=== PATIENT | female | born 1975 | race African-American/Black ===

== ENCOUNTER 2021-07-03 09:40 | Emergency (ER) | payer OTHER, SELFPAY ==
[2021-07-03 09:42] VITALS: BP 145/80; PULSE 81; RESP 17; TEMP 36.8; O2SAT 98
--- NOTE | 2021-07-03 10:06 | PC.NURSE ---
no answer in the waiting room
[2021-07-03 12:01] VITALS: BP 140/87; PULSE 82; RESP 16; TEMP 37.2; O2SAT 100
--- NOTE | 2021-07-03 13:30 | ED.GENADULT ---
HPI - General Adult General Chief complaint: Nausea/Vomiting/Diarrhea Stated complaint: n/v bodyaches Time Seen by Provider: 07/03/21 13:17 Source: patient History of Present Illness HPI narrative: Patient is 45 y/o female complaining of nausea, vomiting and diarrhea since 3 days ago. She states that she is vomiting up food and yellow liquid. She vomited 3 times during last 24 hours. She has headache and body ache. She denies any abdominal pain. She states that people at work has similar symptoms. She has not been vaccinated COVID. Related Data Allergies Allergy/AdvReac Type Severity Reaction Status Date / Time No Known Allergies Allergy Mild Unverified 05/28/08 18:54 Review of Systems Constitutional: Constitutional: Denies chills, Reports fever(s), Reports headache(s) and Denies weakness Eyes: Eyes: Denies blurry vision ENT: Reports headache(s) and Denies neck pain Cardiovascular: Cardiovascular: Denies chest pain and Denies dyspnea Respiratory: Respiratory: Denies cough and Denies dyspnea Gastrointestinal: Gastrointestinal: Denies abdominal pain, Reports diarrhea, Reports nausea and Reports vomiting Genitourinary: Genitourinary: Denies hematuria and Denies dysuria Musculoskeletal: Musculoskeletal: Denies back pain, Reports myalgias and Denies neck pain Neurologic: Reports headache(s) and Denies weakness Exam Const: General: no acute distress and well developed Orientation/consciousness: oriented to person, oriented to place, oriented to time and patient oriented x3 HENMT: Head: normocephalic Ears: external ears normal General nose exam: Normal external nose present Eyes: General: appearance normal, both eyes and all related structures Conjunctivae: conjunctivae normal Neck: Neck: normal visual inspection and full ROM Chest: Chest palpation & inspection: normal inspection of the chest and no tenderness Resp: Effort & Inspection: normal respiratory effort Auscultation: clear to auscultation bilaterally Cardio: Rate: regular rate Rhythm: regular rhythm GI: GI Palp: No abdominal tenderness and Yes Soft to palpation Skin: General skin exam: normal color and turgor normal Neuro: General: oriented to person, oriented to place, oriented to time and patient oriented x3 Cognition (Neuro): normal cognition Extrem: General: normal to inspection, full ROM and no pedal edema Psych: Appearance: grossly normal Mental Status: mental status grossly normal Affect: normal affect Course Vital Signs Vital signs: Vital Signs Temperature 36.8 C 07/03/21 09:42 Pulse Rate 81 07/03/21 09:42 Respiratory Rate 17 07/03/21 09:42 Blood Pressure 145/80 H 07/03/21 09:42 Pulse Oximetry 98 07/03/21 09:42 Temperature 37.2 C 07/03/21 12:01 Pulse Rate 82 07/03/21 12:01 Respiratory Rate 16 07/03/21 12:01 Blood Pressure 140/87 07/03/21 12:01 Pulse Oximetry 100 07/03/21 12:01 Medical Decision Making Vital Signs Vital Signs: Vital Signs Temperature 36.8 C 07/03/21 09:42 Pulse Rate 81 07/03/21 09:42 Respiratory Rate 17 07/03/21 09:42 Blood Pressure 145/80 H 07/03/21 09:42 Pulse Oximetry 98 07/03/21 09:42 Temperature 37.2 C 07/03/21 12:01 Pulse Rate 82 07/03/21 12:01 Respiratory Rate 16 07/03/21 12:01 Blood Pressure 140/87 07/03/21 12:01 Pulse Oximetry 100 07/03/21 12:01 Lab Data Result diagrams: 07/03/21 13:27 07/03/21 13:27 Labs: Lab Results 07/03/21 07/03/21 07/03/21 Range/Units 13:27 13:27 14:00 WBC 3.7 L (4.5-10.0) K/mm3 RBC 5.58 H (4.2-5.4) M/mm3 Hgb 14.9 (12.0-15.0) g/dL Hct 44.9 (37.0-47.0) % MCV 80.5 (80-100) fl MCH 26.7 (26-34) pg MCHC 33.2 (32-36) g/dl RDW 14.9 H (11.5-14.5) % Plt Count 110 L (150-375) k/mm3 MPV 13.0 H (7.4-10.4) fl Immature Gran % (Auto) 0.3 (0-0.5) % Neut % (Auto) 68.3 (45.5-73.1) % Lymph % (Auto) 12.2 L (18.3-44.
[2021-07-03 13:37] LABS: Basophils Percent Auto 0.5 % (0.2-1.2); Eosinophils Percent Auto 0.5 % (0-4.4); Hematocrit 44.9 % (37.0-47.0); Hemoglobin 14.9 g/dL (12.0-15.0); Immature Granulocyte Absolute 0.01 K/mm3 (0.00-0.031); Immature Granulocyte Percent A 0.3 % (0-0.5); Immature Platelet Fraction Pct 12.3 % (0.9-11.2); Lymphocytes Absolute Auto 0.45 K/mm3 (0.9-3.2); Lymphocytes Percent Auto 12.2 % (18.3-44.2); Mean Corpuscular HGB Conc 33.2 g/dl (32-36); Mean Corpuscular Hemoglobin 26.7 pg (26-34); Mean Corpuscular Volume 80.5 fl (80-100); Monocytes Absolute Auto 0.7 K/mm3 (0.1-0.6); Monocytes Percent Auto 18.2 % (2.6-8.5); Neutrophils Absolute Auto 2.5 K/mm3 (1.3-6.7); Neutrophils Percent Auto 68.3 % (45.5-73.1); Platelet Count Result 110 k/mm3 (150-375); Red Blood Count 5.58 M/mm3 (4.2-5.4); Red Cell Distribution Width 14.9 % (11.5-14.5); White Blood Count 3.7 K/mm3 (4.5-10.0)
[2021-07-03 13:49] LABS: Alanine Aminotransferase 30 U/L (4-35); Albumin Level 4.4 g/dL (3.5-5.1); Alkaline Phosphatase 71 U/L (38-126); Anion Gap 10 mmol/L (8-16); Aspartate Amino Transferase 43 U/L (14-36); Bilirubin,Total 0.3 mg/dL (0.2-1.3); Blood Urea Nitrogen 8 mg/dL (7-17); Calcium 9.4 mg/dL (8.4-10.2); Carbon Dioxide 22 mmol/L (22-30); Chloride 108 mmol/L (98-107); Estimated CRCL calculation 104 ml/min; Estimated Glomerular Filt Rate > 60; Glucose 91 mg/dL (65-110); Lipase 49 U/L (23-300); Potassium 3.7 mmol/L (3.4-5.0); Sodium 140 mmol/L (137-145)
[2021-07-03] MEDS: SODIUM CHLORIDE 0.9% IV 1,000 ML 999 ML IV CONT (13:57)
[2021-07-03 14:19] LABS: Add Urine Microscopic? YES; Appearance Urine Clear (Clear); Bilirubin Urine Negative (Negative); Blood Urine Negative (Negative); Color Urine Yellow (Yellow); Glucose Urine UA Negative (Negative); Ketones Urine 1+ mg/dL (Negative); Leukocyte Esterase Ur Negative LEU/UL (Negative); Mucus Urine Few /lpf; Nitrate Urine Negative (Negative); Protein Urine Negative (Negative); RBC Urine 0-2 /hpf (0-2); Specific Grav Ur 1.014 (1.001-1.035); Squamous Epithelial Cell Urine Occasional /hpf (Few); Urobilinogen Urine Negative mg/dL (<2.0); WBC Urine 0-3 /hpf
[2021-07-04 14:39] LABS: SARS-CoV-2 RNA PCR Positive
== END 2021-07-03 16:40 | disposition home or self-care (01) ==
PROVIDERS: Emergency Provider Emergency Medicine
DX: U07.1 COVID-19 (principal); K52.9 Noninfective gastroenteritis and colitis, unspecified
CPT/HCPCS: 36415; 80053; 81001; 81025; 83690; 85025; 85055; 96360; 99283; C9803; J7030; U0003; U0005